=== PATIENT | male | born 1990 | race Caucasian/White ===

== ENCOUNTER 2020-10-03 07:10 | Emergency (ER) | payer OTHER, SELFPAY ==
--- NOTE | 2020-10-03 07:19 | XR_ITS ---
EXAMINATION: XR CHEST CLINICAL INFORMATION: Chest pain COMPARISON: None TECHNIQUE: Frontal view of the chest was obtained. FINDINGS: The cardiac and mediastinal contours are normal. The lungs are well inflated. The lungs are clear. There is a right jugular port with tip projecting over the cavoatrial junction. There is a catheter seen projecting over the left lower neck and chest, question representing a [employer] shunt catheter. There is no pleural effusion or pneumothorax. There is curvature of the lower thoracic spine to the right. XR/XR chest 1V IMPRESSION: No evidence for acute disease in the chest.
--- NOTE | 2020-10-03 07:20 | ED_ITS ---
HPI - Chest Pain General Chief Complaint: Dizziness Stated Complaint: dizziness Time Seen by Provider: 10/03/20 07:19 Source: patient and EMS Mode of arrival: EMS Limitations: no limitations History of Present Illness MD complaint: chest pain Onset (ago): day(s) (3) Timing of current episode: constant Prior episodes: No Onset: during rest and during exertion Pain location: left chest Pain radiation: none Severity: mild Quality: sharp Relieving factors: nothing Exacerbating factors: movement Associated symptoms: dyspnea Treatment prior to arrival: none Related Data Allergies Allergy/AdvReac Type Severity Reaction Status Date / Time No Known Allergies Allergy Unverified 05/18/20 17:38 Review of Systems Review of Systems: Constitutional : No Weight loss, No Fever, No Chills ENT/Mouth : No sore throat, No Rhinorrhea Eyes: No Eye Pain, No Swelling Cardiovascular : pos Chest Pain, pos SOB, no Dyspnea on Exertion, No Orthopnea, No Edema, No Palpitations Respiratory : No Cough, No Sputum Gastrointestinal : no Nausea, No Vomiting, No Diarrhea, No abdominal Pain, No Hematochezia, No Melena Genitourinary : No Dysuria, No Urinary Frequency Musculoskeletal : No joint pain, No Myalgias, No Joint Swelling Skin : No Skin Lesions, No rash Neuro : No Weakness, No Numbness, No Dizziness, No Headache Psych : No Anxiety/Panic, No Depression Heme/Lymph: No Bruising, No Lymphadenopathy Endocrine : No Polyuria, No Polydipsia All other systems reviewed and are negative PMFSH Past Medical History Attestation statement: The following information was validated with the patient. 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 Social History Social History (Updated 10/03/20 @ 07:21 by Dianna Welch DO) Alcohol intake: never Smoking Status: Current every day smoker Smoked in Last 30 Days: Yes Use of substances other than those prescribed or required for medical reasons: Yes Substance Use Type: Marijuana Advance Directives: Yes Advance Directives Information Provided: Yes Advance Directives on File: No Physical Exam Vital Signs: Vital Signs: Last Vital Signs Temp 97.6 F 02/02/21 07:23 Pulse 81 10/03/20 07:23 Resp 16 10/03/20 07:23 BP 127/56 L 10/03/20 07:23 Pulse Ox 99 10/03/20 07:23 Body Mass Index 20.6 Appearance: Alert. Oriented X3. No acute distress. Odd affect, laughing to himself Eyes: Pupils equal, round and reactive to light. ENT: Pharynx normal. Neck: Normal inspection. Neck supple. CVS: irregular heart rate and rhythm. Pulses normal. Respiratory: No respiratory distress. Breath sounds normal. Abdomen: Soft and nontender. Skin: Skin warm and dry. Normal skin color. Normal skin turgor. Extremities: No lower extremity edema. No calf ttp Neuro: Oriented X 3. No motor deficit. No sensory deficit. 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 he has some what of an odd affect - CT head ordered lab work, CT head, COVID< CXR negative will discuss with Cardiology pattern of bigeminy otherwise workup negative, he seems find does not report palpitations only pain in the chest at times discussed with cardiology no intervention at this time follow up with outpatient cardiology MDM - Chest Pain MDM Narrative Medical decision making narrative: 29 yo male with no sig PMH remote hx of brain tumor with resection, no IVDA, he comes in with 3 days of L sided chest pain some mild shortness of breath, other than smoking no known ACS risk factors, seems comfortable making jokes not toxic doubt dissection, PERC negative, will obtain EKG, CXR, troponin x 1 - he is homeless at this time as well, states he can find places to stay, patient has odd affect, making jokes, very vague historian requesting records from [facility] [place] notes he has a port a cath but has no used it in a year Lab Data Result diagrams: 10/03/20 07:32 10/03/20 07:31 Labs: Lab Results 10/03/20 10/03/20 10/03/20 Range/Units 07:31 07:31 07:31 WBC (4.8-10.8) X10*3/uL RBC (4.60-5.80) X10*6/uL Hgb (14.0-18.0) g/dl Hct (42-52) % MCV (80-98) fL MCH (27.0-33.0) pg MCHC (31.0-36.0) g/dl RDW (11.0-16.0) % Plt Count (160-400) X10*3/uL MPV (9.4-12.4) fL Immature Gran % (Auto) (0.0-0.4) % Neut % (Auto) (45-73) % Lymph % (Auto) (20-40) % [place] % (Auto) (2-11) % Eos % (Auto) (0-4) % Baso % (Auto) (0-2) % Lymph # (Auto) (1.2-4.9) X10*3/uL [place] # (Auto) (0.1-1.2) X10*3/uL Eos # (Auto) (0.0-0.4) X10*3/uL Baso # (Auto) (0.0-0.2) X10*3/uL Abs Immat Gran (auto) (0.00-0.03) X10*3/uL Absolute Neuts (auto) (2.0-8.3) X10*3/uL Absolute Nucleated RBC (0.0-0.012) X10*3/uL Nucleated RBC % (auto) (0.0-0.2) /100WBC Hold Blue Top Sodium 138 (135-145) mmol/L Potassium 4.1 (3.3-5.1) mmol/L Chloride 99 (96-108) mmol/L Carbon Dioxide 27 (22-29) mmol/L Anion Gap 16 (12-20) BUN 13 (9-16) mg/dL Creatinine 1.08 (0.5-1.4) mg/dL Estim Creat Clear Calc 102.3 Estimated GFR > 60 Random Glucose 96 (60-115) mg/dL Calcium 9.2 (8.4-10.2) mg/dL Magnesium 2.0 (1.6-2.6) mg/dL Total Bilirubin 0.7 (0.0-1.0) mg/dL Direct Bilirubin 0.2 (0.0-0.5) mg/dL AST 21 (5-37) U/L ALT 11 (0-40) U/L Alkaline Phosphatase 80 (39-117) U/L Troponin I High Sens < 3.5 (<3.5-35.0) ng/L Total Protein 7.3 (6.5-8.0) g/dL Albumin 4.5 (3.5-5.0) g/dL Urine Opiates Screen (Not Detect) Ur Barbiturates Screen (Not Detect) Ur Phencyclidine Scrn (Not Detect) Ur Amphetamines Screen (Not Detect) U Benzodiazepines Scrn (Not Detect) Urine Cocaine Screen (Not Detect) U Marijuana (THC) Screen (Not Detect) Ethyl Alcohol mg/dL Coronavirus (PCR) NEGATIVE (Negative) Influenza Type A (PCR) NEGATIVE (Negative) Influenza Type B (PCR) NEGATIVE (Negative) RSV RNA Qual (PCR) NEGATIVE (Negative) 10/03/20 10/03/20 10/03/20 Range/Units 07:32 07:32 07:33 WBC 6.9 (4.8-10.8) X10*3/uL RBC 5.57 (4.60-5.80) X10*6/uL Hgb 16.5 (14.0-18.0) g/dl Hct 49.4 (42-52) % MCV 88.7 (80-98) fL MCH 29.6 (27.0-33.0) pg MCHC 33.4 (31.0-36.0) g/dl RDW 11.6 (11.0-16.0) % Plt Count 274 (160-400) X10*3/uL MPV 10.2 (9.4-12.4) fL Immature Gran % (Auto) 0.3 (0.0-0.4) % Neut % (Auto) 70.9 (45-73) % Lymph % (Auto) 18.7 L (20-40) % [place] % (Auto) 8.4 (2-11) % Eos % (Auto) 1.0 (0-4) % Baso % (Auto) 0.7 (0-2) % Lymph # (Auto) 1.3 (1.2-4.9) X10*3/uL [place] # (Auto) 0.6 (0.1-1.2) X10*3/uL Eos # (Auto) 0.1 (0.0-0.4) X10*3/uL Baso # (Auto) 0.1 (0.0-0.2) X10*3/uL Abs Immat Gran (auto) 0.02 (0.00-0.03) X10*3/uL Absolute Neuts (auto) 4.9 (2.0-8.3) X10*3/uL Absolute Nucleated RBC 0.000 (0.0-0.012) X10*3/uL Nucleated RBC % (auto) 0.0 (0.0-0.2) /100WBC Hold Blue Top SEE NOTE Sodium (135-145) mmol/L Potassium (3.3-5.1) mmol/L Chloride (96-108) mmol/L Carbon Dioxide (22-29) mmol/L Anion Gap (12-20) BUN (9-16) mg/dL Creatinine (0.5-1.4) mg/dL Estim Creat Clear Calc Estimated GFR Random Glucose (60-115) mg/dL Calcium (8.4-10.2) mg/dL Magnesium (1.6-2.6) mg/dL Total Bilirubin (0.0-1.0) mg/dL Direct Bilirubin (0.0-0.5) mg/dL AST (5-37) U/L ALT (0-40) U/L Alkaline Phosphatase (39-117) U/L Troponin I High Sens (<3.5-35.0) ng/L Total Protein (6.5-8.0) g/dL Albumin (3.5-5.0) g/dL Urine Opiates Screen (Not Detect) Ur Barbiturates Screen (Not Detect) Ur Phencyclidine Scrn (Not Detect) Ur Amphetamines Screen (Not Detect) U Benzodiazepines Scrn (Not Detect) Urine Cocaine Screen (Not Detect) U Marijuana (THC) Screen (Not Detect) Ethyl Alcohol < 10 mg/dL Coronavirus (PCR) (Negative) Influenza Type A (PCR) (Negative) Influenza Type B (PCR) (Negative) RSV RNA Qual (PCR) (Negative) 10/03/20 Range/Units 08:01 WBC (4.8-10.8) X10*3/uL RBC (4.60-5.80) X10*6/uL Hgb (14.0-18.0) g/dl Hct (42-52) % MCV (80-98) fL MCH (27.0-33.0) pg MCHC (31.0-36.0) g/dl RDW (11.0-16.0) % Plt Count (160-400) X10*3/uL MPV (9.4-12.4) fL Immature Gran % (Auto) (0.0-0.4) % Neut % (Auto) (45-73) % Lymph % (Auto) (20-40) % [place] % (Auto) (2-11) % Eos % (Auto) (0-4) % Baso % (Auto) (0-2) % Lymph # (Auto) (1.2-4.9) X10*3/uL [place] # (Auto) (0.1-1.2) X10*3/uL Eos # (Auto) (0.0-0.4) X10*3/uL Baso # (Auto) (0.0-0.2) X10*3/uL Abs Immat Gran (auto) (0.00-0.03) X10*3/uL Absolute Neuts (auto) (2.0-8.3) X10*3/uL Absolute Nucleated RBC (0.0-0.012) X10*3/uL Nucleated RBC % (auto) (0.0-0.2) /100WBC Hold Blue Top Sodium (135-145) mmol/L Potassium (3.3-5.1) mmol/L Chloride (96-108) mmol/L Carbon Dioxide (22-29) mmol/L Anion Gap (12-20) BUN (9-16) mg/dL Creatinine (0.5-1.4) mg/dL Estim Creat Clear Calc Estimated GFR Random Glucose (60-115) mg/dL Calcium (8.4-10.2) mg/dL Magnesium (1.6-2.6) mg/dL Total Bilirubin (0.0-1.0) mg/dL Direct Bilirubin (0.0-0.5) mg/dL AST (5-37) U/L ALT (0-40) U/L Alkaline Phosphatase (39-117) U/L Troponin I High Sens (<3.5-35.0) ng/L Total Protein (6.5-8.0) g/dL Albumin (3.5-5.0) g/dL Urine Opiates Screen Not Detected (Not Detect) Ur Barbiturates Screen Not Detected (Not Detect) Ur Phencyclidine Scrn Not Detected (Not Detect) Ur Amphetamines Screen Not Detected (Not Detect) U Benzodiazepines Scrn Not Detected (Not Detect) Urine Cocaine Screen Not Detected (Not Detect) U Marijuana (THC) Screen POSITIVE H (Not Detect) Ethyl Alcohol mg/dL Coronavirus (PCR) (Negative) Influenza Type A (PCR) (Negative) Influenza Type B (PCR) (Negative) RSV RNA Qual (PCR) (Negative) ECG Data ECG #1: Attestation: I personally reviewed and interpreted this ECG as follows: ECG interpretation date: 10/03/20 ECG interpretation time: 07:31 Interpretation: Rate: 82 Rhythm: NSR with pattern of bigeminy [place]: left Normal P waves. Normal [place]. incomplete RBBB ST T wave : no [place] qTC: normal prior studies: none available The study has been interpreted contemporaneously by me. . Discharge Plan Discharge Clinical Impression: Frequent PVCs Chest pain Qualifiers: Chest pain type: unspecified Qualified Code(s): R07.9 - Chest pain, unspecified Patient Disposition: Home, Self-Care Instructions: Chest Pain (ED), Premature Ventricular Contractions (ED) Additional Instructions: return to ED for any worsening symptoms or concerns Referrals: Umang Velasquez MD [Physician] - 2 weeks
[2020-10-03 07:23] VITALS: BP 127/56; PULSE 81; RESP 16; TEMP 36.4; O2SAT 99; BMI 20.6
[2020-10-03 07:37] LABS: MANUAL DIFF FLAG NO
--- NOTE | 2020-10-03 07:38 | CT_ITS ---
EXAMINATION: CT HEAD WITHOUT CONTRAST CLINICAL INFORMATION: Dizziness. History of CARROT TIER shunt. COMPARISON: Head CT January 12, 2008. TECHNIQUE: Contiguous axial imaging was performed from the skull base to vertex without intravenous administration of contrast. This CT examination was performed using dose optimization techniques as appropriate, variously including the following: *Automated exposure control *Adjustment of mA and/or kV according to patient size (this includes techniques or standardized protocols for targeted exams where dose is matched to indication/reason for exam; i.e. extremities or head) *Use of iterative reconstruction technique FINDINGS: Soft tissue prominence along the floor of the third ventricle on image 21 of series 2 for which a pituitary protocol MRI of the brain would be helpful in further assessment. Left frontal approach ventricular shunt catheter terminates within the anterior aspect of the third ventricle. Gliosis along an old right frontal ventricular shunt catheter tract. The ventricles are decompressed. There is no hydrocephalus. Ventricular size is stable when compared to the January 12, [address] There is no intracranial hemorrhage, hydrocephalus, extra-axial surface collection, midline shift, or other herniation pattern. [place] to white matter differentiation is diffusely maintained without evidence of an evolved acute territorial infarct. The basilar cisterns are preserved. No significant soft tissue abnormality. No acute osseous abnormality. The paranasal sinuses and the mastoid air cells are well aerated. CT/CT head/brain wo con IMPRESSION: - Soft tissue prominence along the floor of the third ventricle on image 21 of series 2 for which a pituitary protocol MRI of the brain would be helpful in further assessment. - Shunted ventricular system with normal ventricular size.
[2020-10-03 07:39] LABS: Basophils Absolute Auto 0.1 X10*3/uL (0.0-0.2); Basophils Percent Auto 0.7 % (0-2); Eosinophils Absolute Auto 0.1 X10*3/uL (0.0-0.4); Hematocrit 49.4 % (42-52); Hemoglobin 16.5 g/dl (14.0-18.0); Imm Gran Abs Auto 0.02 X10*3/uL (0.00-0.03); Imm Gran Pct Auto 0.3 % (0.0-0.4); Lymphocytes Absolute Auto 1.3 X10*3/uL (1.2-4.9); Lymphocytes Percent Auto 18.7 % (20-40); Mean Corpuscular HGB Conc 33.4 g/dl (31.0-36.0); Mean Corpuscular Hemoglobin 29.6 pg (27.0-33.0); Mean Corpuscular Volume 88.7 fL (80-98); Mean Platelet Volume 10.2 fL (9.4-12.4); Monocytes Absolute Auto 0.6 X10*3/uL (0.1-1.2); Monocytes Percent Auto 8.4 % (2-11); Neutrophils Absolute Auto 4.9 X10*3/uL (2.0-8.3); Neutrophils Percent Auto 70.9 % (45-73); Platelet Count 274 X10*3/uL (160-400); Red Blood Count 5.57 X10*6/uL (4.60-5.80); Red Cell Distribution Width 11.6 % (11.0-16.0); White Blood Count 6.9 X10*3/uL (4.8-10.8)
--- NOTE | 2020-10-03 07:45 | PC.NURSE ---
pt amb to br with steady gait
[2020-10-03 07:59] LABS: Ethanol < 10 mg/dL
[2020-10-03 08:06] LABS: Troponin-I High Sensitivity < 3.5 ng/L (<3.5-35.0)
[2020-10-03 08:09] LABS: Alanine Aminotransferase 11 U/L (0-40); Albumin Level 4.5 g/dL (3.5-5.0); Alkaline Phosphatase 80 U/L (39-117); Anion Gap 16 (12-20); Aspartate Amino Transferase 21 U/L (5-37); Bilirubin Direct 0.2 mg/dL (0.0-0.5); Bilirubin Total 0.7 mg/dL (0.0-1.0); Blood Urea Nitrogen 13 mg/dL (9-16); Calcium 9.2 mg/dL (8.4-10.2); Carbon Dioxide 27 mmol/L (22-29); Chloride 99 mmol/L (96-108); Creatinine Clr Calc Pharmacy 102.3; Estimated Glomerular Filt Rate > 60; Glucose Random 96 mg/dL (60-115); Potassium 4.1 mmol/L (3.3-5.1); Sodium 138 mmol/L (135-145); Total Protein 7.3 g/dL (6.5-8.0)
[2020-10-03 08:19] LABS: Influenza A PCR NEGATIVE (Negative); Influenza B PCR NEGATIVE (Negative); Resp Syncy Virus RNA Qual PCR NEGATIVE (Negative); SARS COV2 PCR INHOUSE NEGATIVE (Negative)
[2020-10-03 08:29] LABS: Amphetamine Screen Urine Not Detected (Not Detect); Barbiturates, Urine Not Detected (Not Detect); Benzodiazepines Screen Urine Not Detected (Not Detect); Cannabinoid Screen Urine POSITIVE (Not Detect); Cocaine Screen Urine Not Detected (Not Detect); Opiate Screen Urine Not Detected (Not Detect); Phencyclidine Screen Urine Not Detected (Not Detect)
== END 2020-10-03 10:07 | disposition home or self-care (01) ==
PROVIDERS: Emergency Provider Emergency Medicine
DX: R07.9 Chest pain, unspecified (principal); I49.3 Ventricular premature depolarization; Z20.822 Contact with and (suspected) exposure to COVID-19; F12.90 Cannabis use, unspecified, uncomplicated; Z85.841 Personal history of malignant neoplasm of brain; F17.200 Nicotine dependence, unspecified, uncomplicated; Z95.9 Presence of cardiac and vascular implant and graft, unspecified
CPT/HCPCS: 0241U; 36415; 70450; 71045; 80048; 80076; 80307; 80320; 83735; 84484; 85025; 99284

== ENCOUNTER 2025-02-02 04:19 | Inpatient (IN) | payer OTHER, SELFPAY ==
[2025-02-02 04:27] VITALS: BP 114/72; PULSE 79; O2SAT 97
[2025-02-02 04:32] VITALS: BP 134/92; PULSE 62; RESP 20; TEMP 37.1; O2SAT 99; BMI 21.8
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
[2025-02-02 05:22] LABS: MANUAL DIFF FLAG NO
[2025-02-02 05:23] LABS: Basophils Absolute Auto 0.1 X10*3/uL (0.0-0.2); Eosinophils Absolute Auto 0.2 X10*3/uL (0.0-0.4); Eosinophils Percent Auto 2.7 % (0-4); Hematocrit 39.4 % (42.0-52.0); Hemoglobin 13.6 g/dl (14.0-18.0); Imm Gran Abs Auto 0.02 X10*3/uL (0.00-0.03); Imm Gran Pct Auto 0.3 % (0.0-0.4); Lymphocytes Absolute Auto 1.2 X10*3/uL (1.2-4.9); Lymphocytes Percent Auto 20.2 % (20-40); Mean Corpuscular HGB Conc 34.5 g/dl (31.0-36.0); Mean Corpuscular Hemoglobin 30.5 pg (27.0-33.0); Mean Corpuscular Volume 88.3 fL (80.0-98.0); Mean Platelet Volume 9.5 fL (9.4-12.4); Monocytes Absolute Auto 0.6 X10*3/uL (0.1-1.2); Monocytes Percent Auto 10.1 % (2-11); Neutrophils Absolute Auto 3.8 x10*3/uL (2.0-8.3); Neutrophils Percent Auto 65.7 % (45-73); Platelet Count 275 X10*3/uL (160-400); Red Blood Count 4.46 X10*6/uL (4.60-5.80); Red Cell Distribution Width 12.4 % (11.0-16.0); White Blood Count 5.8 X10*3/uL (4.8-10.8)
[2025-02-02 05:38] LABS: Acetaminophen LAB < 3 mcg/mL (<30); Alanine Aminotransferase 29 U/L (0-40); Albumin Level 4.4 g/dL (3.5-5.0); Alkaline Phosphatase 71 U/L (39-117); Anion Gap 10 (12-20); Aspartate Amino Transferase 33 U/L (5-37); Bilirubin Total 0.2 mg/dL (0.0-1.0); Blood Urea Nitrogen 9 mg/dL (9-16); Calcium 9.6 mg/dL (8.4-10.2); Carbon Dioxide 32 mmol/L (22-29); Chloride 105 mmol/L (96-108); Creatinine Clr Calc Pharmacy 131.8; Estimated Glomerular Filt Rate > 60; Ethanol < 10 mg/dL; Glucose Random 101 mg/dL (60-115); Potassium 3.9 mmol/L (3.3-5.1); Salicylate < 5.0 mg/dL (15-30); Sodium 143 mmol/L (135-145); Total Protein 7.1 g/dL (6.5-8.0)
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
[2025-02-02 07:23] LABS: Amphetamine Screen Urine Not Detected (Not Detect); Barbiturates, Urine Not Detected (Not Detect); Benzodiazepines Screen Urine Not Detected (Not Detect); Buprenorphine Scr Not Detected (Not Detect); Cannabinoid Screen Urine POSITIVE (Not Detect); Cocaine Screen Urine Not Detected (Not Detect); Fentanyl, urine Not Detected (Not Detect); Methadone Screen, Urine Not Detected (Not Detect); Opiate Screen Urine Not Detected (Not Detect); Oxycodone Screen Urine Not Detected (Not Detect); Phencyclidine Screen Urine Not Detected (Not Detect)
--- NOTE | 2025-02-02 07:53 | PC.NURSE ---
Assumed care of patient at 0645, patient appears to be in no apparent distress this am, sitting on bed in room, offering no complaints to this RN, currently listening to music. Continue plan of care for IPLOC
[2025-02-02 08:03] LABS: Appearance Urine Clear; Color Urine Yellow; Glucose Urine UA Negative (Negative); Leukocyte Esterase Urine Negative (Negative); Nitrite Urine Negative (Negative); Urine Blood Negative (Negative); Urine Ketones Negative (Negative); Urine Protein Negative (Neg-Trace)
--- NOTE | 2025-02-02 09:35 | MHC.CARE ---
Pt will be an inpatient bedsearch.
[2025-02-02 14:43] VITALS: BP 118/85; PULSE 70; RESP 16; TEMP 36.8; O2SAT 98
--- NOTE | 2025-02-02 14:51 | PHA.MEDREC ---
Pharmacy Consult ? Medication Reconciliation Pharmacy reviewed the med rec confirmed by nursing. Nurse confirmed pt is not taking any medications at this time.
[2025-02-02 16:25] VITALS: BP 123/80; PULSE 60; RESP 14; TEMP 36.4; O2SAT 99
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
[2025-02-02 19:09] VITALS: BMI 21.4
[2025-02-02] MEDS: hydrOXYzine HCL 25 MG TABLET PO (21:34)
[2025-02-02] MEDS: OLANZapine 5 MG TABLET PO (21:34)
[2025-02-03 07:35] VITALS: BP 122/71; PULSE 60; RESP 18; TEMP 36.9; O2SAT 100
[2025-02-03 08:02] LABS: Estimated Average Glucose 100 mg/dL; Hemoglobin A1C 120.0123 umol/L; Hemoglobin A1c % 5.1 % (<6.0); Total Hemoglobin (HGBA1C) 3669.2045 umol/L
[2025-02-03 08:10] LABS: Alanine Aminotransferase 24 U/L (0-40); Albumin Level 4.2 g/dL (3.5-5.0); Alkaline Phosphatase 69 U/L (39-117); Anion Gap 9 (12-20); Aspartate Amino Transferase 28 U/L (5-37); Bilirubin Total 0.5 mg/dL (0.0-1.0); Blood Urea Nitrogen 12 mg/dL (9-16); Calcium 9.6 mg/dL (8.4-10.2); Carbon Dioxide 30 mmol/L (22-29); Chloride 107 mmol/L (96-108); Cholesterol 211 mg/dL (<200); Creatinine Clr Calc Pharmacy 129.7; Estimated Glomerular Filt Rate > 60; Glucose Random 83 mg/dL (60-115); HDL Cholesterol 73 mg/dL (>40); LDL Cholesterol Calculated 124 mg/dL (<100); Potassium 4.3 mmol/L (3.3-5.1); Sodium 142 mmol/L (135-145); Total Protein 6.8 g/dL (6.5-8.0); Triglycerides 74 mg/dL (<150)
--- NOTE | 2025-02-03 12:45 | P.HPPS_ITS ---
[facility] Date of Service: 02/03/25 Chief Complaint: Crisis Sources of Information: patient interviewed, chart reviewed and crisis/core team assessment reviewed HPI Subjective Notes: [place] Warning and Conditional Voluntary Narrative: Patient is a 34-year-old male with history of bipolar disorder who was brought in to ER due to being found hyperverbal, paranoid and delusional secondary to medication noncompliance. Per crisis report, patient arrived to ER via ambulance [place] being [place] the park, hyperverbal, paranoid and delusional. History of inpatient hospitalizations, and medication nonadherence. Speech is pressured, tangential, disorganized and delusional. Patient denies SI/HI/VH/AH. History of one suicidal gesture in 2012 when he wrapped a hospital gown around his neck. Patient reports poor sleep and fair appetite. He reports he has not slept in days. He is currently not on any psychiatric medications. Patient appeared to be responding to internal stimuli during assessment. Last psychiatric hospitalization was a year ago at [facility]. Uses marijuana daily. Denies any other substance use. Utox positive for marijuana. Collateral obtained from patient's sister, reports patient was living with his mother but has been homeless for the past 2 months due to aggression and property damage. Patient's mother has a restraining order against him. Patient's sister reports he has not taken medications since 2017. During admission assessment patient presents alert and oriented x3. Calm and cooperative. Rapid and pressured speech. Circumstantial. Patient reports he came to the hospital due to being emotional for not being able to see his son . Patient stated, I have a hard time trusting people. People change like the weather. I don't want to depend on meds. I want people to help me lift my spirits. I feel like people want to control me. 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 I'm here to help people . denies SI/HI/VH/AH. Discussed starting on a mood stabilizer; risks/benefits reviewed. Patient reports history of taking Depakote, Seroquel, Risperdal and Zyprexa. He does not recall effects of these medications. Denies history of SIB. He reports 1 prior suicide attempt in 2012 where he wrapped a hospital gown around his neck at the hospital but states that he regrets that gesture because if you harm herself you go to hell . He does not have outpatient psychiatric providers at this time. Past Psychiatric History: Patient reports history of taking Depakote, Seroquel, Risperdal and Zyprexa. He does not recall effects of these medications. Denies history of SIB. He reports 1 prior suicide attempt in 2012 where he wrapped a hospital gown around his neck at the hospital. Does not have outpatient psychiatric providers at this time. 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 single. 8 y/o son who lives with biological mother. 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 Substance History: marijuana use daily. utox positive for marijuana. denies any other substance use. Trauma History: yes Diagnostics Vital Signs (24Hr): Vital Signs - 24 hr 02/02/25 14:43 02/02/25 16:25 02/03/25 07:35 Temperature 98.3 F 97.5 F 98.4 F Pulse Rate 70 60 60 Respiratory Rate 16 14 18 Blood Pressure 118/85 123/80 122/71 Pulse Oximetry 98 99 100 Oxygen Delivery Method Room Air Room Air Room Air BMI result Body Mass Index 21.4 Labs 02/02/25 05:17 02/03/25 07:43 Labs: Laboratory Results - last 48 hr 02/02/25 02/02/25 02/03/25 05:17 06:43 07:43 WBC 5.8 RBC 4.46 L Hgb 13.6 L Hct 39.4 L MCV 88.3 MCH 30.5 MCHC 34.5 RDW 12.4 Plt Count 275 MPV 9.5 Immature Gran % (Auto) 0.3 Neut % (Auto) 65.7 Lymph % (Auto) 20.2 [place] % (Auto) 10.1 Eos % (Auto) 2.7 Baso % (Auto) 1.0 Lymph # (Auto) 1.2 [place] # (Auto) 0.6 Eos # (Auto) 0.2 Baso # (Auto) 0.1 Abs Immat Gran (auto) 0.02 Absolute Neuts (auto) 3.8 Absolute Nucleated RBC 0.000 Nucleated RBC % (auto) 0.0 Sodium 143 142 Potassium 3.9 4.3 Chloride 105 107 Carbon Dioxide 32 H 30 H Anion Gap 10 L 9 L BUN 9 12 Creatinine 0.82 0.82 Estim Creat Clear Calc 131.8 129.7 Estimated GFR > 60 > 60 Random Glucose 101 83 Estimat Average Glucose 100 Hemoglobin A1c % 5.1 Calcium 9.6 9.6 Total Bilirubin 0.2 0.5 AST 33 28 ALT 29 24 Alkaline Phosphatase 71 69 Total Protein 7.1 6.8 Albumin 4.4 4.2 Triglycerides 74 Cholesterol 211 H LDL Cholesterol, Calc 124 H HDL Cholesterol 73 Urine Color Yellow Urine Appearance Clear Urine pH 7.0 Ur Specific [place] 1.010 Urine Protein Negative Urine Glucose (UA) Negative Urine Ketones Negative Urine Blood Negative Urine Nitrite Negative Ur Leukocyte Esterase Negative Salicylates < 5.0 L Urine Opiates Screen Not Detected Ur Buprenorphine Scrn Not Detected Ur Oxycodone Screen Not Detected Urine Methadone Screen Not Detected Urine Fentanyl Screen Not Detected Acetaminophen < 3 Ur Barbiturates Screen Not Detected Ur Phencyclidine Scrn Not Detected Ur Amphetamines Screen Not Detected U Benzodiazepines Scrn Not Detected Urine Cocaine Screen Not Detected U Marijuana (THC) Screen POSITIVE H Ethyl Alcohol < 10 Meds/Allergies Meds Home Medications ?Medication ?Instructions ?Recorded ?Confirmed ?Type No Known Home Meds 02/02/25 02/02/25 History Allergies Allergies Allergy/AdvReac Type Severity Reaction Status Date / Time No Known Allergies Allergy Verified 02/02/25 05:02 Mental Status Exam Mental Status Exam Narrative: Pt is alert and oriented; behavior is cooperative and calm; dressed in casual attire; eye contact appropriate; Speech is rapid rate, normal volume and pressured; tangential; grandiose; denies SI/HI/VH/AH. Assessment & Plan Assessment & Plan (1) Bipolar 2 disorder: Status: Acute Code(s): F31.81 - Bipolar II disorder (2) Homelessness: Status: Acute Code(s): Z59.00 - Homelessness unspecified Plan Patient is a 34-year-old male with history of bipolar disorder who was brought in to ER due to being found hyperverbal, paranoid and delusional secondary to medication noncompliance. Plan: CV 15 minute safety checks obtain collateral Start: Zyprexa 10mg PO bedtime [place] ER 300mg PO bedtime encourage groups referral to outpatient psychiatric providers discharge planning Patient educated on: diagnosis and medication risk/benefits Reason for continued inpatient stay Substantial Risk for: med/psych decompensation Statement Statement: I have reviewed the history and physical and performed a pertinent examination on my patient. No changes have occurred unless specified. If the History and Physical was not performed prior to admission, the Hospitalist's service will be consulted for completing the admission physical. Time Spent With Patient Time: Total time managing care of this patient today _60___ minutes.
[2025-02-03 19:40] VITALS: BP 127/76; PULSE 73; RESP 16; TEMP 37.1; O2SAT 96
[2025-02-03] MEDS: OLANZapine 5 MG TABLET PO (21:41)
[2025-02-03] MEDS: hydrOXYzine HCL 25 MG TABLET PO (21:41)
[2025-02-04 08:18] VITALS: BP 117/69; PULSE 60; RESP 16; TEMP 36.6; O2SAT 98
--- NOTE | 2025-02-04 10:31 | P.PNPSI_ITS ---
Subjective Subjective Date of Service: 02/04/25 Reason For Visit: Crisis Subjective Notes: Conditional Voluntary Interim History: Patient reports he feels his mind is racing ; pt stated, I feel like my mind was running a million miles an hour. I know I need meds because it slows my thoughts . Declined [place] last night. Did take Zyprexa 5mg PO. Calmer than admission, however continues with rapid speech. denies SI/HI/VH/AH. showered. continue to encourage medication compliance. Medication Compliance: Intermittent Side effects from medications: No Attending Groups: No Mental Status Exam Mental Status Exam Narrative: Pt is alert and oriented; behavior is cooperative and calm; dressed in casual attire; eye contact appropriate; Speech is rapid rate, normal volume and pressured; tangential; grandiose; denies SI/HI/VH/AH. Diagnostics Vital Signs (24Hr): Vital Signs - 24 hr 02/03/25 19:40 02/04/25 08:18 Temperature 98.7 F 97.9 F Pulse Rate 73 60 Respiratory Rate 16 16 Blood Pressure 127/76 117/69 Pulse Oximetry 96 98 Oxygen Delivery Method Room Air Room Air BMI result Body Mass Index 21.4 Labs 02/02/25 05:17 02/03/25 07:43 Labs: Laboratory Results - last 48 hr 02/03/25 07:43 Sodium 142 Potassium 4.3 Chloride 107 Carbon Dioxide 30 H Anion Gap 9 L BUN 12 Creatinine 0.82 Estim Creat Clear Calc 129.7 Estimated GFR > 60 Random Glucose 83 Estimat Average Glucose 100 Hemoglobin A1c % 5.1 Calcium 9.6 Total Bilirubin 0.5 AST 28 ALT 24 Alkaline Phosphatase 69 Total Protein 6.8 Albumin 4.2 Triglycerides 74 Cholesterol 211 H LDL Cholesterol, Calc 124 H HDL Cholesterol 73 Medications Medications Current Medications Acetaminophen (Acetaminophen 325 Mg Tablet) 650 mg PO Q6H PRN PRN Reason: Headache/Pain, Scale 1-10 Al Hydroxide/Mg Hydroxide (Magnesium Hydrox/Alum Hydrox 30 Ml Oral.Susp) 30 ml PO Q6H PRN PRN Reason: Heartburn/Nausea Hydroxyzine HCl (Hydroxyzine Hcl 25 Mg Tablet) 25 mg PO Q6H PRN PRN Reason: mild anxiety Last Admin: 02/03/25 21:41 Dose: 25 mg [place] Carbonate ([place] Carbonate Er 300 Mg Tablet.Er) 300 mg PO BEDTIME JOSE Last Admin: 02/03/25 21:44 Dose: Not Given Magnesium Hydroxide (Milk Of Magnesia 30 Ml Oral.Susp) 30 ml PO DAILY PRN PRN Reason: Constipation Olanzapine (Olanzapine 5 Mg Tablet) 5 mg PO Q4H PRN PRN Reason: agitation Last Admin: 02/03/25 21:41 Dose: 5 mg Olanzapine (Olanzapine Odt 10 Mg Tab.Rapdis) 10 mg TRANSLINGU BEDTIME JOSE Last Admin: 02/03/25 21:44 Dose: Not Given Trazodone HCl (Trazodone Hcl 50 Mg Tablet) 50 mg PO BEDTIME MRX1 PRN PRN Reason: Insomnia Allergies Allergies Allergy/AdvReac Type Severity Reaction Status Date / Time No Known Allergies Allergy Verified 02/02/25 05:02 Assessment & Plan Assessment & Plan (1) Bipolar 2 disorder: Status: Acute Code(s): F31.81 - Bipolar II disorder (2) Homelessness: Status: Acute Code(s): Z59.00 - Homelessness unspecified Plan Patient is a 34-year-old male with history of bipolar disorder who was brought in to ER due to being found hyperverbal, paranoid and delusional secondary to medication noncompliance. Plan: CV 15 minute safety checks obtain collateral Start: Zyprexa 10mg PO bedtime [place] ER 300mg PO bedtime encourage groups referral to outpatient psychiatric providers discharge planning 02/04: Patient reports he feels his mind is racing ; pt stated, I feel like my mind was running a million miles an hour. I know I need meds because it slows my thoughts . Declined [place] last night. Did take Zyprexa 5mg PO. Calmer than admission, however continues with rapid speech. denies SI/HI/VH/AH. showered. continue to encourage medication compliance. Patient educated on: diagnosis and medication risk/benefits Reason for continued inpatient stay Substantial Risk for: med/psych decompensation Time Spent With Patient Time: Total time managing care of this patient today _20___ minutes.
[2025-02-04 19:45] VITALS: BP 132/93; PULSE 74; RESP 16; TEMP 36.8; O2SAT 98
[2025-02-04] MEDS: OLANZapine ODT 10 MG TAB.RAPDIS TRANSLINGU (20:20)
[2025-02-04] MEDS: hydrOXYzine HCL 25 MG TABLET PO (20:20)
[2025-02-05 08:00] VITALS: BP 120/65; PULSE 57; RESP 16; TEMP 36.8; O2SAT 98
[2025-02-05 10:00] VITALS: BP 142/88; PULSE 98; RESP 16; TEMP 36.6; O2SAT 98
[2025-02-05] MEDS: OLANZapine 5 MG TABLET PO (13:06)
[2025-02-05] MEDS: Hydrocortisone 2.5 % Rectal Cr 30 GM TUBE 1 APPL PR (13:16)
--- NOTE | 2025-02-05 17:00 | P.PNPSI_ITS ---
Subjective Subjective Date of Service: 02/05/25 Reason For Visit: Crisis Interim History: c/o hemorrhoids, agreeable to cream. feels zyprexa has been helpful, refusing mood stabilizer such as lithium depakote tegretol. agreeable to increase zyprexa at HS and asking to add low dose in the morning. per staff, manic. 3- day notice. expansive. sleeping a lot. slef-dialoguing, hyperverbal, racing thoughts, tangential. slept 8 hours. Mental Status Exam Mental Status Exam Narrative: Pt is alert and oriented; behavior is cooperative hyperactive; dressed in casual attire; eye contact appropriate; Speech is rapid rate, normal volume and pressured; tangential; grandiose; no SI/HI/VH/AH expressed. Diagnostics Vital Signs (24Hr): Vital Signs - 24 hr 02/04/25 19:45 02/05/25 08:00 Temperature 98.2 F 98.2 F Pulse Rate 74 57 Respiratory Rate 16 16 Blood Pressure 132/93 H 120/65 Pulse Oximetry 98 98 Oxygen Delivery Method Room Air Room Air BMI result Body Mass Index 21.4 Labs 02/02/25 05:17 02/03/25 07:43 Medications Medications Current Medications Acetaminophen (Acetaminophen 325 Mg Tablet) 650 mg PO Q6H PRN PRN Reason: Headache/Pain, Scale 1-10 Al Hydroxide/Mg Hydroxide (Magnesium Hydrox/Alum Hydrox 30 Ml Oral.Susp) 30 ml PO Q6H PRN PRN Reason: Heartburn/Nausea Hydrocortisone (Hydrocortisone 2.5 % Rectal Cr 30 Gm Tube) 1 appl [place] BID JOSE Last Admin: 02/05/25 13:16 Dose: 1 appl Hydroxyzine HCl (Hydroxyzine Hcl 25 Mg Tablet) 25 mg PO Q6H PRN PRN Reason: mild anxiety Last Admin: 02/04/25 20:20 Dose: 25 mg [place] Carbonate ([place] Carbonate Er 300 Mg Tablet.Er) 300 mg PO BEDTIME JOSE Last Admin: 02/04/25 20:21 Dose: Not Given Magnesium Hydroxide (Milk Of Magnesia 30 Ml Oral.Susp) 30 ml PO DAILY PRN PRN Reason: Constipation Olanzapine (Olanzapine 5 Mg Tablet) 5 mg PO Q4H PRN PRN Reason: agitation Last Admin: 02/03/25 21:41 Dose: 5 mg Olanzapine (Olanzapine Odt 10 Mg Tab.Rapdis) 20 mg TRANSLINGU BEDTIME JOSE Olanzapine (Olanzapine 5 Mg Tablet) 5 mg PO DAILY JOSE Last Admin: 02/05/25 13:06 Dose: 5 mg Trazodone HCl (Trazodone Hcl 50 Mg Tablet) 50 mg PO BEDTIME MRX1 PRN PRN Reason: Insomnia Allergies Allergies Allergy/AdvReac Type Severity Reaction Status Date / Time No Known Allergies Allergy Verified 02/02/25 05:02 Assessment & Plan Assessment & Plan (1) Bipolar 2 disorder: Status: Acute Code(s): F31.81 - Bipolar II disorder (2) Homelessness: Status: Acute Code(s): Z59.00 - Homelessness unspecified Plan Patient is a 34-year-old male with history of bipolar disorder who was brought in to ER due to being found hyperverbal, paranoid and delusional secondary to medication noncompliance. Plan: CV 15 minute safety checks obtain collateral Start: Zyprexa 10mg PO bedtime [place] ER 300mg PO bedtime encourage groups referral to outpatient psychiatric providers discharge planning 02/04: Patient reports he feels his mind is racing ; pt stated, I feel like my mind was running a million miles an hour. I know I need meds because it slows my thoughts . Declined [place] last night. Did take Zyprexa 5mg PO. Calmer than admission, however continues with rapid speech. denies SI/HI/VH/AH. showered. continue to encourage medication compliance. 02/05: likes zyprexa, feels it has slowed his thoughts and let him sleep. refusing lithium, depakote, tegretol. agreeable to increase HS zyprexa to 20 mg. asks to add zyprexa 5 mg to morning medications. total daily dosing to be 25 mg moving forward. Reason for continued inpatient stay Substantial Risk for: inability to function Time Spent With Patient Time: Total time managing care of this patient today ____ minutes.
[2025-02-05 20:00] VITALS: BP 133/78; PULSE 62; RESP 16; TEMP 36.7; O2SAT 100
[2025-02-05] MEDS: OLANZapine ODT 10 MG TAB.RAPDIS 20 MG TRANSLINGU (21:20)
[2025-02-05] MEDS: hydrOXYzine HCL 25 MG TABLET PO (21:22)
[2025-02-05] MEDS: Acetaminophen 325 MG TABLET 650 MG PO (21:26)
[2025-02-06] MEDS: OLANZapine 5 MG TABLET PO ×2 (08:18→20:53)
[2025-02-06] MEDS: Hydrocortisone 2.5 % Rectal Cr 30 GM TUBE 1 APPL PR ×2 (08:19→20:56)
[2025-02-06 08:58] VITALS: BP 142/88; PULSE 98; RESP 16; TEMP 36.6; O2SAT 98
--- NOTE | 2025-02-06 16:02 | HO.PSYCHPN ---
Subjective Subjective Date of Service: 02/06/25 Reason For Visit: Crisis Interim History: in bed sleeping mid morning. quickly revs up. irritable, pressured. doesn't want to take mood stabilizer. per staff, 3-day up . hyperverbal, tangential. racing thoughts. c/o AH eves. slept 8 hours. Mental Status Exam Mental Status Exam Narrative: Pt is alert and oriented; behavior is cooperative hyperactive; dressed in casual attire; eye contact appropriate; Speech is rapid rate, normal volume and pressured; tangential; grandiose; no SI/HI/VH/AH expressed. Diagnostics Vital Signs (24Hr): Vital Signs - 24 hr 02/05/25 20:00 02/06/25 08:58 Temperature 98.0 F 97.8 F Pulse Rate 62 98 Respiratory Rate 16 16 Blood Pressure 133/78 142/88 H Pulse Oximetry 100 98 Oxygen Delivery Method Room Air Room Air BMI result Body Mass Index 21.4 Labs 02/02/25 05:17 02/03/25 07:43 Medications Medications Current Medications Acetaminophen (Acetaminophen 325 Mg Tablet) 650 mg PO Q6H PRN PRN Reason: Headache/Pain, Scale 1-10 Last Admin: 02/05/25 21:26 Dose: 650 mg [place] Hydroxide/Mg Hydroxide (Magnesium Hydrox/Alum Hydrox 30 Ml Oral.Susp) 30 ml PO Q6H PRN PRN Reason: Heartburn/Nausea Clotrimazole (Clotrimazole 1 % Cream 15 Gm Tube) 1 appl TOPICAL BID JOSE; Protocol Hydrocortisone (Hydrocortisone 2.5 % Rectal Cr 30 Gm Tube) 1 appl [place] BID JOSE Last Admin: 02/06/25 08:19 Dose: 1 appl Hydroxyzine HCl (Hydroxyzine Hcl 25 Mg Tablet) 25 mg PO Q6H PRN PRN Reason: mild anxiety Last Admin: 02/05/25 21:22 Dose: 25 mg [place] Carbonate ([place] Carbonate Er 450 Mg Tablet.Er) 450 mg PO BID JOSE Magnesium Hydroxide (Milk Of Magnesia 30 Ml Oral.Susp) 30 ml PO DAILY PRN PRN Reason: Constipation Olanzapine (Olanzapine 5 Mg Tablet) 5 mg PO Q4H PRN PRN Reason: agitation Last Admin: 02/03/25 21:41 Dose: 5 mg Olanzapine (Olanzapine Odt 10 Mg Tab.Rapdis) 20 mg TRANSLINGU BEDTIME JOSE Last Admin: 02/05/25 21:20 Dose: 20 mg Olanzapine (Olanzapine 5 Mg Tablet) 5 mg PO DAILY [facility] Last Admin: 02/06/25 08:18 Dose: 5 mg Trazodone HCl (Trazodone Hcl 50 Mg Tablet) 50 mg PO BEDTIME MRX1 PRN PRN Reason: Insomnia Allergies Allergies Allergy/AdvReac Type Severity Reaction Status Date / Time No Known Allergies Allergy Verified 02/02/25 05:02 Assessment & Plan Assessment & Plan (1) Bipolar 2 disorder: Status: Acute Code(s): F31.81 - Bipolar II disorder (2) Homelessness: Status: Acute Code(s): Z59.00 - Homelessness unspecified Plan Patient is a 34-year-old male with history of bipolar disorder who was brought in to ER due to being found hyperverbal, paranoid and delusional secondary to medication noncompliance. Plan: CV 15 minute safety checks obtain collateral Start: Zyprexa 10mg PO bedtime [place] ER 300mg PO bedtime encourage groups referral to outpatient psychiatric providers discharge planning 02/04: Patient reports he feels his mind is racing ; pt stated, I feel like my mind was running a million miles an hour. I know I need meds because it slows my thoughts . Declined [place] last night. Did take Zyprexa 5mg PO. Calmer than admission, however continues with rapid speech. denies SI/HI/VH/AH. showered. continue to encourage medication compliance. 02/05: likes zyprexa, feels it has slowed his thoughts and let him sleep. refusing lithium, depakote, tegretol. agreeable to increase HS zyprexa to 20 mg. asks to add zyprexa 5 mg to morning medications. total daily dosing to be 25 mg moving forward. 02/06: not demonstrably improved on escalated dose of zyprexa. refusing lithium, increase offered dosing to 450 BID nonetheless. 3-day up weds. continue current mgmt otherwise. perhaps more sleep with zyprexa increase. Reason for continued inpatient stay Substantial Risk for: inability to function Time Spent With Patient Time: Total time managing care of this patient today ____ minutes.
[2025-02-06 20:00] VITALS: BP 133/85; PULSE 85; RESP 18; TEMP 36.8; O2SAT 99
[2025-02-06] MEDS: Acetaminophen 325 MG TABLET 650 MG PO (20:50)
[2025-02-06] MEDS: hydrOXYzine HCL 25 MG TABLET PO (20:52)
[2025-02-06] MEDS: OLANZapine ODT 10 MG TAB.RAPDIS 20 MG TRANSLINGU (20:52)
[2025-02-06] MEDS: Clotrimazole 1 % Cream 15 GM TUBE 1 APPL TOPICAL (20:56)
[2025-02-07 07:10] VITALS: BP 125/90; PULSE 67; RESP 16; TEMP 2.4; TEMP 36.4; O2SAT 98
[2025-02-07] MEDS: OLANZapine 5 MG TABLET PO (08:30)
--- NOTE | 2025-02-07 12:00 | P.PNPSI_ITS ---
Subjective Subjective Date of Service: 02/07/25 Reason For Visit: Crisis Subjective Notes: 3 Day Interim History: Keeping to self. Continues with rapid speech, however slower than admission. Declined lithium. Pt stated, I'm good with the medication I'm taking. I feel calmer and I'm sleeping now which was the problem . Pt focused on returning to work because he wants to save for an apartment. denies SI/HI/VH/AH. Continue current tx plan. Medication Compliance: Intermittent Side effects from medications: No Attending Groups: No Mental Status Exam Mental Status Exam Narrative: Pt is alert and oriented; behavior is cooperative and calm; dressed in casual attire; mood is described as good ; eye contact appropriate; Speech is rapid rate, normal volume and pressured; thought process is organized and goal directed; Thought content is on discharge and obtaining an apartment; denies SI/HI/VH/AH. Diagnostics Vital Signs (24Hr): Vital Signs - 24 hr 02/06/25 20:00 02/07/25 07:10 Temperature 98.2 F 36.4 F L Pulse Rate 85 67 Respiratory Rate 18 16 Blood Pressure 133/85 125/90 H Pulse Oximetry 99 98 Oxygen Delivery Method Room Air Room Air BMI result Body Mass Index 21.4 Labs 02/02/25 05:17 02/03/25 07:43 Medications Medications Current Medications Acetaminophen (Acetaminophen 325 Mg Tablet) 650 mg PO Q6H PRN PRN Reason: Headache/Pain, Scale 1-10 Last Admin: 02/06/25 20:50 Dose: 650 mg Al Hydroxide/Mg Hydroxide (Magnesium Hydrox/Alum Hydrox 30 Ml Oral.Susp) 30 ml PO Q6H PRN PRN Reason: Heartburn/Nausea Clotrimazole (Clotrimazole 1 % Cream 15 Gm Tube) 1 appl TOPICAL BID JOSE; Protocol Last Admin: 02/07/25 11:31 Dose: Not Given Hydrocortisone (Hydrocortisone 2.5 % Rectal Cr 30 Gm Tube) 1 appl [place] BID JOSE Last Admin: 02/07/25 11:31 Dose: Not Given Hydroxyzine HCl (Hydroxyzine Hcl 25 Mg Tablet) 25 mg PO Q6H PRN PRN Reason: mild anxiety Last Admin: 02/06/25 20:52 Dose: 25 mg [place] Carbonate ([place] Carbonate Er 450 Mg Tablet.Er) 450 mg PO BID JOSE Last Admin: 02/07/25 09:17 Dose: Not Given Magnesium Hydroxide (Milk Of Magnesia 30 Ml Oral.Susp) 30 ml PO DAILY PRN PRN Reason: Constipation Olanzapine (Olanzapine 5 Mg Tablet) 5 mg PO Q4H PRN PRN Reason: agitation Last Admin: 02/06/25 20:53 Dose: 5 mg Olanzapine (Olanzapine Odt 10 Mg Tab.Rapdis) 20 mg TRANSLINGU BEDTIME JOSE Last Admin: 02/06/25 20:52 Dose: 20 mg Olanzapine (Olanzapine 5 Mg Tablet) 5 mg PO DAILY JOSE Last Admin: 02/07/25 08:30 Dose: 5 mg Trazodone HCl (Trazodone Hcl 50 Mg Tablet) 50 mg PO BEDTIME MRX1 PRN PRN Reason: Insomnia Allergies Allergies Allergy/AdvReac Type Severity Reaction Status Date / Time No Known Allergies Allergy Verified 02/02/25 05:02 Assessment & Plan Assessment & Plan (1) Bipolar 2 disorder: Status: Acute Code(s): F31.81 - Bipolar II disorder (2) Homelessness: Status: Acute Code(s): Z59.00 - Homelessness unspecified Plan Patient is a 34-year-old male with history of bipolar disorder who was brought in to ER due to being found hyperverbal, paranoid and delusional secondary to medication noncompliance. Plan: CV 15 minute safety checks obtain collateral Start: Zyprexa 10mg PO bedtime [place] ER 300mg PO bedtime encourage groups referral to outpatient psychiatric providers discharge planning 02/04: Patient reports he feels his mind is racing ; pt stated, I feel like my mind was running a million miles an hour. I know I need meds because it slows my thoughts . Declined [place] last night. Did take Zyprexa 5mg PO. Calmer than admission, however continues with rapid speech. denies SI/HI/VH/AH. showered. continue to encourage medication compliance. 02/05: likes zyprexa, feels it has slowed his thoughts and let him sleep. refusing lithium, depakote, tegretol. agreeable to increase HS zyprexa to 20 mg. asks to add zyprexa 5 mg to morning medications. total daily dosing to be 25 mg moving forward. 02/06: not demonstrably improved on escalated dose of zyprexa. refusing lithium, increase offered dosing to 450 BID nonetheless. 3-day up weds. continue current mgmt otherwise. perhaps more sleep with zyprexa increase. 02/07: Keeping to self. Continues with rapid speech, however slower than admission. Declined lithium. Pt stated, I'm good with the medication I'm taking. I feel calmer and I'm sleeping now which was the problem . Pt focused on returning to work because he wants to save for an apartment. denies SI/HI/VH/AH. Continue current tx plan. Patient educated on: diagnosis and medication risk/benefits Reason for continued inpatient stay Substantial Risk for: med/psych decompensation Time Spent With Patient Time: Total time managing care of this patient today _20___ minutes.
[2025-02-07 19:37] VITALS: BP 133/84; PULSE 74; TEMP 36.9; O2SAT 100
[2025-02-07] MEDS: hydrOXYzine HCL 25 MG TABLET PO (21:39)
[2025-02-07] MEDS: OLANZapine ODT 10 MG TAB.RAPDIS 20 MG TRANSLINGU (21:39)
[2025-02-07] MEDS: Hydrocortisone 2.5 % Rectal Cr 30 GM TUBE 1 APPL PR (22:31)
[2025-02-07] MEDS: Clotrimazole 1 % Cream 15 GM TUBE 1 APPL TOPICAL (22:31)
[2025-02-08 07:48] VITALS: BP 123/74; PULSE 78; RESP 16; TEMP 36.8; O2SAT 98
[2025-02-08] MEDS: OLANZapine 5 MG TABLET PO (08:39)
--- NOTE | 2025-02-08 09:15 | P.PNPSI_ITS ---
Subjective Subjective Date of Service: 02/08/25 Reason For Visit: Crisis Subjective Notes: 3 Day Interim History: Continues with rapid speech, however slower than admission. Declined lithium. Pt reports he will continue to take Zyprexa when discharged. denies SI/HI/VH/AH. Continues focused on returning to work; pt stated, I'm worried I might loose my job because I was in the hospital . Pt states he plans on going to the halfway in [place] since it is close to his place if employment. Pt reports he plans on following up with outpatient providers. 3 day up on 02/09/25. Medication Compliance: Intermittent Side effects from medications: No Attending Groups: No Mental Status Exam Mental Status Exam Narrative: Pt is alert and oriented; behavior is cooperative and calm; dressed in casual attire; mood is described as good ; eye contact appropriate; Speech is rapid rate, normal volume and less pressured; thought process is organized and goal directed; Thought content is on discharge and returning to work; denies SI/HI/VH/AH. Diagnostics Vital Signs (24Hr): Vital Signs - 24 hr 02/07/25 19:37 02/08/25 07:48 Temperature 98.4 F 98.3 F Pulse Rate 74 78 Respiratory Rate 16 Blood Pressure 133/84 123/74 Pulse Oximetry 100 98 Oxygen Delivery Method Room Air Room Air BMI result Body Mass Index 21.4 Labs 02/02/25 05:17 02/03/25 07:43 Medications Medications Current Medications Acetaminophen (Acetaminophen 325 Mg Tablet) 650 mg PO Q6H PRN PRN Reason: Headache/Pain, Scale 1-10 Last Admin: 02/06/25 20:50 Dose: 650 mg Al Hydroxide/Mg Hydroxide (Magnesium Hydrox/Alum Hydrox 30 Ml Oral.Susp) 30 ml PO Q6H PRN PRN Reason: Heartburn/Nausea Clotrimazole (Clotrimazole 1 % Cream 15 Gm Tube) 1 appl TOPICAL BID JOSE; Protocol Last Admin: 02/08/25 08:42 Dose: Not Given Hydrocortisone (Hydrocortisone 2.5 % Rectal Cr 30 Gm Tube) 1 appl [place] BID JOSE Last Admin: 02/08/25 08:40 Dose: Not Given Hydroxyzine HCl (Hydroxyzine Hcl 25 Mg Tablet) 25 mg PO Q6H PRN PRN Reason: mild anxiety Last Admin: 02/07/25 21:39 Dose: 25 mg [place] Carbonate ([place] Carbonate Er 450 Mg Tablet.Er) 450 mg PO BID [facility] Last Admin: 02/08/25 08:39 Dose: Not Given Magnesium Hydroxide (Milk Of Magnesia 30 Ml Oral.Susp) 30 ml PO DAILY PRN PRN Reason: Constipation Olanzapine (Olanzapine 5 Mg Tablet) 5 mg PO Q4H PRN PRN Reason: agitation Last Admin: 02/06/25 20:53 Dose: 5 mg Olanzapine (Olanzapine Odt 10 Mg Tab.Rapdis) 20 mg TRANSLINGU BEDTIME JOSE Last Admin: 02/07/25 21:39 Dose: 20 mg Olanzapine (Olanzapine 5 Mg Tablet) 5 mg PO DAILY JOSE Last Admin: 02/08/25 08:39 Dose: 5 mg Trazodone HCl (Trazodone Hcl 50 Mg Tablet) 50 mg PO BEDTIME MRX1 PRN PRN Reason: Insomnia Allergies Allergies Allergy/AdvReac Type Severity Reaction Status Date / Time No Known Allergies Allergy Verified 02/02/25 05:02 Assessment & Plan Assessment & Plan (1) Bipolar 2 disorder: Status: Acute Code(s): F31.81 - Bipolar II disorder (2) Homelessness: Status: Acute Code(s): Z59.00 - Homelessness unspecified Plan Patient is a 34-year-old male with history of bipolar disorder who was brought in to ER due to being found hyperverbal, paranoid and delusional secondary to medication noncompliance. Plan: CV 15 minute safety checks obtain collateral Start: Zyprexa 10mg PO bedtime [place] ER 300mg PO bedtime encourage groups referral to outpatient psychiatric providers discharge planning 02/04: Patient reports he feels his mind is racing ; pt stated, I feel like my mind was running a million miles an hour. I know I need meds because it slows my thoughts . Declined [place] last night. Did take Zyprexa 5mg PO. Calmer than admission, however continues with rapid speech. denies SI/HI/VH/AH. showered. continue to encourage medication compliance. 02/05: likes zyprexa, feels it has slowed his thoughts and let him sleep. refusing lithium, depakote, tegretol. agreeable to increase HS zyprexa to 20 mg. asks to add zyprexa 5 mg to morning medications. total daily dosing to be 25 mg moving forward. 02/06: not demonstrably improved on escalated dose of zyprexa. refusing lithium, increase offered dosing to 450 BID nonetheless. 3-day up wed. continue current mgmt otherwise. perhaps more sleep with zyprexa increase. 02/07: Keeping to self. Continues with rapid speech, however slower than admission. Declined lithium. Pt stated, I'm good with the medication I'm taking. I feel calmer and I'm sleeping now which was the problem . Pt focused on returning to work because he wants to save for an apartment. denies SI/HI/VH/AH. Continue current tx plan. 02/08:Continues with rapid speech, however slower than admission. Declined lithium. Pt reports he will continue to take Zyprexa when discharged. denies SI/HI/VH/AH. Continues focused on returning to work; pt stated, I'm worried I might loose my job because I was in the hospital . Pt states he plans on going to the halfway in [place] since it is close to his place if employment. Pt reports he plans on following up with outpatient providers. 3 day up on 02/09/25. Patient educated on: diagnosis and medication risk/benefits Reason for continued inpatient stay Substantial Risk for: stable for discharge Time Spent With Patient Time: Total time managing care of this patient today _20___ minutes.
[2025-02-08 19:45] VITALS: BP 139/87; PULSE 93; RESP 16; TEMP 37; O2SAT 97
[2025-02-08] MEDS: OLANZapine ODT 10 MG TAB.RAPDIS 20 MG TRANSLINGU (21:04)
[2025-02-08] MEDS: Clotrimazole 1 % Cream 15 GM TUBE 1 APPL TOPICAL (21:06)
[2025-02-08] MEDS: Hydrocortisone 2.5 % Rectal Cr 30 GM TUBE 1 APPL PR (21:06)
[2025-02-08] MEDS: hydrOXYzine HCL 25 MG TABLET PO (21:10)
[2025-02-09] MEDS: OLANZapine 5 MG TABLET PO (08:42)
--- NOTE | 2025-02-09 11:18 | P.DS_ITS ---
DS: Providers Provider Date of Service: 02/09/25 Date of admission: 02/02/25 13:28 Date of discharge: 02/09/25 Primary care physician: [facility] Admitting clinician: Kimberly Hernandez Attending physician on admission: David Paniagua Attending physician on discharge: David Paniagua Discharging clinician: Kimberly Hernandez DS: Diagnosis Discharge Diagnosis (1) Bipolar 2 disorder: Status: Acute (2) Homelessness: Status: Acute DS: Medications Discharge Medications Home Medications: Previous Rx's ?Medication ?Instructions ?Recorded olanzapine 20 mg tablet 20 mg PO BEDTIME 30 days #30 tabs 02/08/25 olanzapine 5 mg tablet 5 mg PO DAILY 30 days #30 tabs 02/08/25 Mental Status Exam Mental Status Exam Narrative: Pt is alert and oriented; behavior is cooperative and calm; dressed in casual attire; mood is described as good ; eye contact appropriate; Speech is rapid rate, normal volume and less pressured; thought process is organized and goal directed; Thought content is on discharge; denies SI/HI/VH/AH. Data Data Completed and Pending Completed studies during hospitalization [Text1]: 02/03/25 07:43 Sodium 142 Potassium 4.3 Chloride 107 Carbon Dioxide 30 H Anion Gap 9 L BUN 12 Creatinine 0.82 Estim Creat Clear Calc 129.7 Estimated GFR > 60 Random Glucose 83 Estimat Average Glucose 100 Hemoglobin A1c % 5.1 Calcium 9.6 Total Bilirubin 0.5 AST 28 ALT 24 Alkaline Phosphatase 69 Total Protein 6.8 Albumin 4.2 Triglycerides 74 Cholesterol 211 H LDL Cholesterol, Calc 124 H HDL Cholesterol 73 DS: Summary Hospital Course Hospital Course: Patient is a 34-year-old male with history of bipolar disorder who was brought in to ER due to being found hyperverbal, paranoid and delusional secondary to medication noncompliance. Per crisis report, patient [place], hyperverbal, paranoid and delusional. History of inpatient hospitalizatio ns, and medication nonadherence. Speech is pressured, tangential, disorganized and delusional. Patient denies SI/HI/VH/AH. History of one suicidal gesture in 2012 when he wrapped a hospital gown around his neck. Patient reports poor sleep and fair appetite. He reports he has not slept in days. He is currently not on any psychiatric medications. Patient appeared to be responding to internal stimuli during assessment. Last psychiatric hospitalization was a year ago at [facility]. Uses marijuana daily. Denies any other substance use. Utox positive for marijuana. Collateral obtained from patient's sister, reports patient was living with his mother but has been homeless for the past 2 months due to aggression and property damage. Patient's mother has a restraining order against him. Patient's sister reports he has not taken medications since 2017. During admission assessment patient presents alert and oriented x3. Calm and cooperative. Rapid and pressured speech. Circumstantial. Patient reports he came to the hospital due to being emotional for not being able to see his son . Patient stated, I have a hard time trusting people. People change like the weather. I don't want to depend on meds. I want people to help me lift my spirits. I feel like people want to control me. 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 I'm here to help people . denies SI/HI/VH/AH. Discussed starting on a mood stabilizer; risks/benefits reviewed. Patient reports history of taking Depakote, Seroquel, Risperdal and Zyprexa. He does not recall effects of these medications. Denies history of SIB. He reports 1 prior suicide attempt in 2012 where he wrapped a hospital gown around his neck at the hospital but states that he regrets that gesture because if you harm herself you go to hell . He does not have outpatient psychiatric providers at this time. Plan: CV 15 minute safety checks obtain collateral Start: Zyprexa 10mg PO bedtime [place] ER 300mg PO bedtime encourage groups referral to outpatient psychiatric providers discharge planning Patient reports he feels his mind is racing ; pt stated, I feel like my mind was running a million miles an hour. I know I need meds because it slows my thoughts . Declined [place] last night. Did take Zyprexa 5mg PO. Calmer than admission, however continues with rapid speech. denies SI/HI/VH/AH. showered. continue to encourage medication compliance. likes zyprexa, feels it has slowed his thoughts and let him sleep. refusing lithium, depakote, tegretol. agreeable to increase HS zyprexa to 20 mg. asks to add zyprexa 5 mg to morning medications. total daily dosing to be 25 mg moving forward. not demonstrably improved on escalated dose of zyprexa. refusing lithium, increase offered dosing to 450 BID nonetheless. 3-day up weds. continue current mgmt otherwise. perhaps more sleep with zyprexa increase. Keeping to self. Continues with rapid speech, however slower than admission. Declined lithium. Pt stated, I'm good with the medication I'm taking. I feel calmer and I'm sleeping now which was the problem . Pt focused on returning to work because he wants to save for an apartment. denies SI/HI/VH/AH. Continue cu rrent tx plan. Continues with rapid speech, however slower than admission. Declined lithium. Pt reports he will continue to take Zyprexa when discharged. denies SI/HI/VH/AH. Continues focused on returning to work; pt stated, I'm worried I might loose my job because I was in the hospital . Pt states he plans on going to the group home in [place] since it is close to his place if employment. Pt reports he plans on following up with outpatient providers. 3 day up on 02/09/25. Status at Discharge Cognitive/behavioral status at discharge: Patient has insight and demonstrates good judgment in terms of wanting to pursue treatment. Patient has a safety plan that includes presenting to the closest ER or calling 911 if feeling unsafe. Functional status at discharge: independent ambulation Overall status at discharge: patient is back to baseline Time Spent with Patient Time attestation: Total time managing care of this patient today _20___ minutes. Time spent: Less than 30 minutes Discharge Plan Discharge Anticipated Discharge Date/Time: 02/09/25 10:00 Patient Disposition: Home, Self-Care Discharge Diagnosis: Bipolar d/o Referrals: [facility] [Other] - 1 Week (Walk in hours are Friday- Friday 8am-8pm, with some weekend hours as well. Please bring your discharge paperwork, ID and insurance card with you. ) [facility] [Other] - 1 Week (Walk in Hours are Friday-Friday 10am-12pm Please bring your discharge paperwork, Id and insurance card with you. ) [facility] [Primary Care Provider] - 1 Week (02-07-25 Your primary care provider has been notified of your discharge and will be making contact with your follow up appt date and time. ) Discharge Medications: New olanzapine 20 mg tablet 20 mg PO BEDTIME 30 Days Qty: 30 0RF olanzapine 5 mg Tablet 5 mg PO DAILY 30 Days Qty: 30 0RF Discharge Orders: Discharge Order (Routine); Ordered 02/09/25 Ordered By: Kimberly Hernandez Diet: Regular diet Activity on Discharge: As tolerated Stand Alone Forms: Patient Portal Discharge page, Community Support Print Language: Polish Care Plan Goals: Maintain mood and safe behaviors Take medications as prescribed Practice coping skills Continue with outpatient providers and reach out to them as needed Health Concerns: Mood stability and behaviors Plan of Treatment: Follow up with your PCP, psychiatric provider and other outpatient providers regarding above concerns Take medications as prescribed Assessment: Patient has insight and demonstrates good judgment in terms of wanting to pursue treatment. Patient has a safety plan that includes presenting to the closest ER or calling 911 if feeling unsafe. Discharge Date/Time: 02/09/25 11:00
== END 2025-02-09 11:00 | disposition home or self-care (01) | DRG 753 ==
LOC: HO.ED 12:59 → HO.PADLT16 13:29
PROVIDERS: Admitting Provider Registered Nurse; Emergency Provider Emergency Medicine; PCP Dentist General Practice; Responsible Provider Registered Nurse; Visit Provider Psychiatry & Neurology Psychiatry
DX: F31.81 Bipolar II disorder (principal); Z59.02 Unsheltered homelessness; Z79.899 Other long term (current) drug therapy
CPT/HCPCS: 36415; 80053; 80061; 80143; 80179; 80307; 81003; 83036; 85025; 99285; S9485

== ENCOUNTER → 2025-02-02 13:28 | Outpatient (BNV) | payer OTHER, SELFPAY | PROVIDERS: Admitting Provider Registered Nurse; Emergency Provider Emergency Medicine; PCP Dentist General Practice; Responsible Provider Registered Nurse; Visit Provider Psychiatry & Neurology Psychiatry | DX: F31.81 Bipolar II disorder (principal); Z59.00 Homelessness unspecified | CPT/HCPCS: 99231; 99232; 99233 ==